=== PATIENT | female | born 1965 | race African-American/Black ===

== ENCOUNTER 2022-03-01 07:11 | Day surgery (SDC) | payer OTHER ==
[~2022-03-01] VITALS: Ht 175.3 cm; Wt 87.1 kg
[~2022-03-01 07:11] MED LIST: ALBU6.7H9 IH; LACTATED RINGERS 1,000 ML IV SCH
[2022-03-01 07:55] LABS: EOSINOPHILS % 2.4 % (0.0-5.0); HEMATOCRIT. 36.6 % (36.0-48.0); HEMOGLOBIN. 12.3 g/dL (12.0-16.0); LYMPHOCYTES % 32.1 % (20.0-50.0); MEAN CORPUSCULAR HEMOGLOBIN 29.5 pg (28.0-32.0); MEAN CORPUSCULAR VOLUME 87.6 fL (81.0-99.0); MEAN PLATELET VOLUME 7.1 fl (7.4-10.4); MONOCYTES % 7.4 % (2.0-8.0); NEUTROPHILS % 57.1 % (40.0-76.0); PLATELET 210 x1000/uL (130-400); RED BLOOD CELL COUNT 4.17 mill/uL (4.2-5.4); RED CELL DISTRIBUTION WIDTH 12.3 % (11.6-14.6)
[2022-03-01 07:57] LABS: CLARITY URINE CLEAR (CLEAR); COLOR URINE YELLOW (YELLOW); KETONES URINE NEGATIVE (NEGATIVE); LEUKOCYTE ESTERASE URINE NEGATIVE (NEGATIVE); NITRITE URINE NEGATIVE (NEGATIVE); OCCULT BLOOD URINE NEGATIVE (NEGATIVE); PROTEIN URINE NEGATIVE (NEGATIVE); SPECIFIC GRAVITY URINE 1.021 (1.005-1.030); UROBILINOGEN URINE 0.2 E.U./dL (0.2-1.0)
[2022-03-01 08:03] LABS: CHLORIDE 108 mEq/L (98-107)
[2022-03-01 08:06] LABS: PARTIAL THROMBOPLASTIN TIME 27.9 sec (23.4-31.0); PROTHROMBIN TIME 10.4 sec (9.6-11.0)
[2022-03-01 08:14] LABS: UCG SCREEN NEGATIVE
[2022-03-01] MEDS ORDERED: [UNRECOGNIZED DRUG - OTHER] INJ (08:47)
[2022-03-01] MEDS ORDERED: FENTANYL CITRATE/PF 50MCG/ML 2ML VIAL ONE (09:57)
[2022-03-01] MEDS ORDERED: PROPOFOL 200MG/20ML VIAL IV ONE (09:57)
[2022-03-01] MEDS ORDERED: MIDAZOLAM HCL 2 MG/2 ML VIAL ONE (09:57)
[2022-03-01] MEDS ORDERED: ONDANSETRON HCL 4MG/2ML INJ IV PRN (10:30)
[2022-03-01] MEDS ORDERED: MEPERIDINE HCL/PF 25MG/ML CPJ IV PRN (10:30)
[2022-03-01] MEDS ORDERED: HYDROMORPHONE HCL/PF 2MG/ML CPJ IV PRN (10:30)
[2022-03-01] MEDS ORDERED: LABETALOL 5MG/ML SYR 20 MG/4 ML SYRINGE IV PRN (10:30)
[2022-03-01] MEDS ORDERED: DEXAMETHASONE 4MG/ML 1ML VIAL ONE (10:32)
[2022-03-01] MEDS: FENTANYL CITRATE/PF 50MCG/ML 2ML VIAL IV PRN ×2 (12:14→14:00)
[2022-03-01] MEDS ORDERED: HYDROCODONE/ACETAMINOPHEN 10/325MG TABLET PO SCH (12:45)
[2022-03-01] MEDS ORDERED: MEPERIDINE HCL/PF 50MG/ML CPJ IM SCH (12:45)
[2022-03-01] MEDS ORDERED: MEPERIDINE HCL/PF 25MG/ML CPJ ONE (13:29)
[2022-03-01 14:00] VITALS: BP 190/80
[2022-03-01] MEDS ORDERED: HYDRALAZINE 20MG/ML VIAL IV PRN (15:30)
== END 2022-03-01 17:30 | disposition home or self-care (01) ==
LOC: OR 07:11
PROVIDERS: ATTEND Obstetrics & Gynecology
DX: N95.0 Postmenopausal bleeding (principal); Z79.899 Other long term (current) drug therapy; Z98.890 Other specified postprocedural states; Z88.6 Allergy status to analgesic agent; Z20.822 Contact with and (suspected) exposure to COVID-19
CPT/HCPCS: 36415; 58558; 80053; 81003; 81025; 85025; 85610; 85730; 86850; 86900; 86901; 87426; 88305; 93005; J1100; J2175; J2250; J2405; J2704; J3010